=== PATIENT | male | born 1975 | race Two or more races ===

== ENCOUNTER 2021-03-02 09:28 | Inpatient (IN) | payer MEDICAID, OTHER ==
[~2021-03-02] VITALS: Ht 177.8 cm; Wt 110.2 kg
[2021-03-02 10:02] LABS: Basophils # (auto) 0 10 ^3/uL (0-0.2); Basophils % (auto) 0.3 % (0.0-2.0); Eosinophils # (auto) 0.1 10 ^3/uL (0-0.8); Eosinophils % (auto) 1.3 % (0.0-7.0); Hematocrit 48.3 % (41.0-53.0); Hemoglobin 16.6 g/dL (13.5-17.5); Lymphocytes # (auto) 1.1 10 ^3/uL (0.4-5.4); Lymphocytes % (auto) 15.6 % (10.0-50.0); Mean Corpuscular Hgb Conc. 34.3 g/dL (32.0-36.0); Mean Corpuscular Volume 84.4 fL (80.0-100.0); Monocytes # (auto) 0.6 10 ^3/uL (0-1.3); Monocytes % (auto) 8.9 % (0.0-12.0); Neutrophils # (auto) 5.4 10 ^3/uL (1.6-8.6); Neutrophils % (auto) 73.9 % (37.0-80.0); Nucleated Red Blood Cells % 1.2 %; Platelet Count (auto) 297 10^3/uL (140-450); Red Blood Cells 5.72 10^6/uL (4.5-5.90); Red Cell Distribution Width 12.9 % (11.8-14.3); White Blood Cell 7.3 10^3/uL (4.4-10.8)
[2021-03-02 10:14] LABS: INR 0.92 (0.9-1.15)
[2021-03-02 10:17] LABS: Albumin 4.5 g/dL (3.4-5.0); Anion Gap 9 (5-15); Blood Urea Nitrogen 18 mg/dL (7-18); Calcium 9.6 mg/dL (8.5-10.1); Carbon Dioxide 23 mmol/L (21-32); Chloride 103 mmol/L (98-107); Glucose 106 mg/dL (74-106); Magnesium 2.8 mg/dL (1.6-2.6); Potassium 3.7 mmol/L (3.5-5.1); Sodium 135 mmol/L (136-145)
[2021-03-02 10:23] LABS: Alanine Aminotransferase 67 U/L (16-61); Alkaline Phosphatase 97 U/L (45-117); Aspartate Aminotransferase 41 U/L (15-37); BUN/Creatinine Ratio 17.8; Bilirubin, Total 1.6 mg/dL (0.2-1.0); GFR African American 102 mL/min; GFR Non-African American 84 mL/min
[2021-03-02] MEDS ORDERED: IOHEXOL 300 MG/ML 100ML BOTTLE IJ ONE (11:57)
[2021-03-02] MEDS ORDERED: MORPHINE SULF INJ 2 MG/ML SYRINGE 1ML IV PRN (14:30)
[2021-03-02] MEDS ORDERED: NITROGLYCERIN 0.4 MG SL TAB SL PRN (14:30)
[2021-03-02] MEDS ORDERED: ONDANSETRON HCL 4 MG/2 ML VIAL IV ONE (14:30)
[2021-03-02] MEDS ORDERED: MORPHINE SULF INJ 2 MG/ML SYRINGE 1ML IV ONE (14:30)
[2021-03-02] MEDS ORDERED: chlordiazePOXIDE HCL 25 MG CAP PO PRN (15:00)
[2021-03-02] MEDS ORDERED: ONDANSETRON HCL 4 MG/2 ML VIAL IV PRN (15:00)
[2021-03-02 16:22] LABS: Cholesterol 166 mg/dL (< 200)
[2021-03-02 16:24] LABS: HDL Cholesterol 76 mg/dL (40-59); LDL Cholesterol 79 mg/dL (< 100); Triglycerides 96 mg/dL (< 150)
[2021-03-02 16:27] LABS: Hepatitis B Surface Antibody Negative
[2021-03-02 17:05] LABS: Hepatitis A Total Antibody Positive
[2021-03-02 17:22] LABS: Hepatitis B Surface Antigen Negative (Negative)
[2021-03-02 17:23] LABS: Hepatitis B Core Total AB Negative; Hepatitis C Antibody Negative (Negative)
[2021-03-02 19:55] VITALS: BP 126/62
[2021-03-02] MEDS: chlordiazePOXIDE HCL 5 MG CAP PO SCH (21:32)
[2021-03-02] MEDS: traMADol HCL 50 MG TAB PO PRN (21:32)
[2021-03-02 22:00] VITALS: BP 126/62
[2021-03-02] MEDS ORDERED: BACL10TA PO (23:56)
[2021-03-02] MEDS ORDERED: ALBU108A5 IN (23:56)
[2021-03-02] MEDS ORDERED: HYDR25TA4 PO (23:56)
[2021-03-02] MEDS ORDERED: NAP500T PO (23:56)
[2021-03-03] MEDS: MORPHINE SULF INJ 2 MG/ML SYRINGE 1ML IV PRN ×3 (04:29→21:36)
[2021-03-03 04:47] LABS: Urine Bacteria FEW /hpf (None Seen); Urine Blood Negative /uL (Negative); Urine Hyaline Cast FEW /lpf (0 - 2); Urine Mucus FEW (None Seen); Urine Specific Gravity 1.048 (1.001-1.035); Urine WBC 1 /hpf (0 - 3)
[2021-03-03 05:00] VITALS: BP 122/73
[2021-03-03 05:00] LABS: Amphetamine Screen, Urine POSITIVE (NEGATIVE); Barbiturate Scree,Urine NEGATIVE (NEGATIVE); Cannabinoid Screen, Urine POSITIVE (NEGATIVE); Cocaine Screen, Urine NEGATIVE (NEGATIVE); Opiate Scree,Urine NEGATIVE (NEGATIVE); Phencyclidine Screen, Urine NEGATIVE (NEGATIVE)
[2021-03-03 05:08] LABS: Benzodiazephine Screen, Urine NEGATIVE (NEGATIVE)
[2021-03-03] MEDS: chlordiazePOXIDE HCL 5 MG CAP PO SCH ×4 (05:35→21:36)
[2021-03-03 07:08] LABS: Albumin 3.8 g/dL (3.4-5.0); Calcium 9.3 mg/dL (8.5-10.1); Potassium 3.7 mmol/L (3.5-5.1)
[2021-03-03 07:12] LABS: BUN/Creatinine Ratio 15.3; Bilirubin, Total 1.3 mg/dL (0.2-1.0); Total Protein 7.4 g/dL (6.4-8.2)
[2021-03-03 08:46] VITALS: BP 127/88
[2021-03-03] MEDS: THIAMINE 100mg/ml INJ (200mg/2ml VIAL) IV SCH (09:17)
[2021-03-03] MEDS: FAMOTIDINE 20 MG TAB PO SCH (09:18)
[2021-03-03] MEDS: traMADol HCL 50 MG TAB PO PRN ×2 (09:18→18:36)
[2021-03-03] MEDS ORDERED: cefTRIAXone 1GM/50ML D5W 50 ML IV ONE (10:15)
[2021-03-03 12:45] VITALS: BP 129/88
[2021-03-03 16:30] VITALS: BP 130/80
[2021-03-03 21:38] VITALS: BP 120/74
[2021-03-04] MEDS: traMADol HCL 50 MG TAB PO PRN ×2 (00:55→08:40)
[2021-03-04 05:43] VITALS: BP 102/66
[2021-03-04] MEDS: chlordiazePOXIDE HCL 5 MG CAP PO SCH (06:26)
[2021-03-04] MEDS: MORPHINE SULF INJ 2 MG/ML SYRINGE 1ML IV PRN (06:26)
[2021-03-04 08:06] LABS: Basophils # (auto) 0 10 ^3/uL (0-0.2); Basophils % (auto) 0.7 % (0.0-2.0); Eosinophils # (auto) 0.1 10 ^3/uL (0-0.8); Eosinophils % (auto) 1.8 % (0.0-7.0); Hematocrit 45.4 % (41.0-53.0); Hemoglobin 16.1 g/dL (13.5-17.5); Lymphocytes # (auto) 1.2 10 ^3/uL (0.4-5.4); Lymphocytes % (auto) 23.7 % (10.0-50.0); Mean Corpuscular Hemoglobin 30.2 pg (28.0-32.0); Mean Corpuscular Hgb Conc. 35.5 g/dL (32.0-36.0); Mean Corpuscular Volume 85.2 fL (80.0-100.0); Monocytes # (auto) 0.5 10 ^3/uL (0-1.3); Monocytes % (auto) 8.7 % (0.0-12.0); Neutrophils # (auto) 3.4 10 ^3/uL (1.6-8.6); Neutrophils % (auto) 65.1 % (37.0-80.0); Nucleated Red Blood Cells % 0.3 %; Platelet Count (auto) 247 10^3/uL (140-450); Red Blood Cells 5.32 10^6/uL (4.5-5.90); White Blood Cell 5.3 10^3/uL (4.4-10.8)
[2021-03-04 08:27] LABS: Albumin 3.6 g/dL (3.4-5.0); Anion Gap 9 (5-15); Blood Urea Nitrogen 17 mg/dL (7-18); Carbon Dioxide 25 mmol/L (21-32); Chloride 104 mmol/L (98-107); Glucose 91 mg/dL (74-106); Potassium 3.6 mmol/L (3.5-5.1); Sodium 138 mmol/L (136-145)
[2021-03-04 08:33] LABS: Alanine Aminotransferase 60 U/L (16-61); Alkaline Phosphatase 80 U/L (45-117); Aspartate Aminotransferase 25 U/L (15-37); BUN/Creatinine Ratio 18.7; Bilirubin, Total 0.9 mg/dL (0.2-1.0); GFR African American 115 mL/min; GFR Non-African American 95 mL/min
[2021-03-04] MEDS: FAMOTIDINE 20 MG TAB PO SCH (08:40)
[2021-03-04] MEDS: THIAMINE 100mg/ml INJ (200mg/2ml VIAL) IV SCH (08:40)
[2021-03-04 08:53] VITALS: BP 130/71
[2021-03-04] MEDS ORDERED: cefTRIAXone 1GM/50ML D5W 50 ML IV SCH (09:00)
[2021-03-04 10:06] VITALS: BP 130/71
== END 2021-03-04 10:55 | disposition home or self-care (01) | DRG 205 ==
LOC: ER 09:28 → TELE 14:25 → TELE-CENTR 19:56
PROVIDERS: ADMIT Internal Medicine; ATTEND Internal Medicine
DX: M94.0 Chondrocostal junction syndrome [Tietze] (principal); N17.0 Acute kidney failure with tubular necrosis; I50.30 Unspecified diastolic (congestive) heart failure; R65.10 Systemic inflammatory response syndrome (SIRS) of non-infectious origin without acute organ dysfunction; E87.1 Hypo-osmolality and hyponatremia; B15.9 Hepatitis A without hepatic coma; C64.1 Malignant neoplasm of right kidney, except renal pelvis; I13.0 Hypertensive heart and chronic kidney disease with heart failure and stage 1 through stage 4 chronic kidney disease, or unspecified chronic kidney disease; R16.0 Hepatomegaly, not elsewhere classified; K76.0 Fatty (change of) liver, not elsewhere classified; M54.12 Radiculopathy, cervical region; E66.9 Obesity, unspecified; N18.9 Chronic kidney disease, unspecified; F15.10 Other stimulant abuse, uncomplicated; Z20.822 Contact with and (suspected) exposure to COVID-19; M25.512 Pain in left shoulder; N28.89 Other specified disorders of kidney and ureter; F12.90 Cannabis use, unspecified, uncomplicated; M48.02 Spinal stenosis, cervical region; F10.10 Alcohol abuse, uncomplicated; J45.909 Unspecified asthma, uncomplicated; Z83.3 Family history of diabetes mellitus; Z82.49 Family history of ischemic heart disease and other diseases of the circulatory system; Z68.34 Body mass index [BMI] 34.0-34.9, adult
CPT/HCPCS: 36415; 70450; 71045; 72125; 73030; 74176; 74177; 76705; 80053; 80061; 80307; 81001; 83735; 83880; 84443; 84484; 85025; 85379; 85610; 85730; 86704; 86706; 86708; 86803; 87086; 87340; 87426; 93005; 93306; 96374; 96375; G0378; J0696; J2405